=== PATIENT | female | born 1965 | race Caucasian/White ===

== ENCOUNTER 2017-02-06 06:52 | Day surgery (SDC) | payer OTHER ==
[~2017-02-06 06:52] MED LIST: Lidocaine 1%/Sod Bicarbonate in NS 8.4% 1 ML Syringe IV PRN; Sodium Chloride 0.9% 10 ML Syringe FLUSH PRN
[2017-02-06] MEDS: Lactated Ringers 1,000 ML IV SCH ×2 (07:30→14:18)
[2017-02-06] MEDS ORDERED: Lidocaine 1% 4 ML ONE (07:44)
[2017-02-06] MEDS ORDERED: Dexamethasone 4 MG/ML 5 ML MDV ONE (07:44)
[2017-02-06] MEDS ORDERED: Propofol 200 MG/20 ML SDV ONE ×2 (07:44→09:38)
[2017-02-06] MEDS ORDERED: Ondansetron 4 MG/2 ML SDV ONE (07:44)
[2017-02-06] MEDS ORDERED: Rocuronium 50 MG/5 ML Vial ONE (07:44)
[2017-02-06] MEDS ORDERED: Midazolam 1 MG/ML 2 ML SDV ONE (07:44)
[2017-02-06] MEDS ORDERED: ceFAZolin 1 GM Vial ONE (07:44)
[2017-02-06] MEDS ORDERED: Lactated Ringers 1,000 ML ONE ×2 (07:44→10:55)
[2017-02-06] MEDS ORDERED: Ketorolac 30 MG/ML SDV ONE (07:44)
[2017-02-06] MEDS ORDERED: fentaNYL 250 MCG/5 ML SDV ONE (07:45)
[2017-02-06] MEDS ORDERED: HYDROmorphone 1 MG/ML Syringe ONE (07:46)
--- NOTE | 2017-02-06 07:59 | PCM.PREANE ---
Preanesthetic Assessment - Anesthesia/Transfusion/Family Hx Anesthesia History: Prior Anesthesia Without Reaction Family History of Anesthesia Reaction: No Transfusion History: No Prior Transfusion(s) Intubation History: Unknown - Review of Systems General: No Symptoms, Fatigue (anemia with current hgb=10.2) Pulmonary: No Symptoms (History of HEMAL/ does not use CPAP.) Cardiovascular: No Symptoms (History of HTN), Chest Pain (some chest tightness noted per patient since being diagnosed with anemia./ Patient also states the chest discomfor comes more when feeling stressed and anxious.), Dyspnea on Exertion, Lightheadedness (prior hemoglobin ofj 7.4) Gastrointestinal: No Symptoms, Nausea (currently due to nerves and pt c/o being hungry) Neurological: No Symptoms (history of vertigo after d/c) Other: Reports: Thyroid Problems (hypothyroid), Depression, Anxiety - Physical Assessment NPO Status Date: 02/05/17 NPO Status Time: 22:00 Pulse: 58 O2 Sat by Pulse Oximetry: 98 Respiratory Rate: 16 Blood Pressure: 165/75 Temperature: 36.7 C Height: 1.7 m Weight: 91 kg ASA Class: 2 Mental Status: Alert & Oriented x3 Airway Class: Mallampati = 3 Dentition: Reports: Normal Dentition, Caries Thyro-Mental Finger Breadths: 3 Mouth Opening Finger Breadths: 3 ROM/Head Extension: Full Lungs: Clear to Auscultation, Normal Respiratory Effort Cardiovascular: Regular Rate, Regular Rhythm, No Murmurs - Lab Values: Laboratory Last Values WBC 6.48 K/mm3 (3.98-10.04) 02/06/17 07:25 RBC 4.22 M/mm3 (3.98-5.22) 02/06/17 07:25 Hgb 10.2 gm/L (11.2-15.7) L 02/06/17 07:25 Hct 33.2 % (34.1-44.9) L 02/06/17 07:25 MCV 78.7 fl (79.4-94.8) L 02/06/17 07:25 MCH 24.2 pg (25.6-32.2) L 02/06/17 07:25 MCHC 30.7 g/dl (32.2-35.5) L 02/06/17 07:25 Plt Count 244 K/mm3 (182-369) 02/06/17 07:25 MPV 10.2 fl (9.4-12.3) 02/06/17 07:25 Neut % (Auto) 62.4 % (34.0-71.1) 02/06/17 07:25 Lymph % (Auto) 26.5 % (19.3-51.7) 02/06/17 07:25 Cass % (Auto) 8.5 % (4.7-12.5) 02/06/17 07:25 Eos % (Auto) 2.3 (0.7-5.8) 02/06/17 07:25 Baso % (Auto) 0.3 % (0.1-1.2) 02/06/17 07:25 Neut # (Auto) 4.04 K/mm3 (1.56-6.13) 02/06/17 07:25 Lymph # (Auto) 1.72 K/mm3 (1.18-3.74) 02/06/17 07:25 Cass # (Auto) 0.55 K/mm3 (0.24-0.36) H 02/06/17 07:25 Eos # (Auto) 0.15 K/mm3 (0.04-0.36) 02/06/17 07:25 Baso # (Auto) 0.02 K/mm3 (0.01-0.08) 02/06/17 07:25 Urine HCG, Qual Negative (NEGATIVE) 02/06/17 07:10 - Imaging/EKG Impressions: EKG: SR rate= 57, Mild ST depression II, III, non specific findings, QT/QTc moderately prolonged for rate. - Allergies Allergies/Adverse Reactions: Allergies Allergy/AdvReac Type Severity Reaction Status Date / Time Sulfa (Sulfonamide Allergy Itching Verified 02/05/17 15:20 Antibiotics) - Anesthesia Plan Pre-Op Medication Ordered: Beta Maria Victoria Beta Maria Victoria: Metoprolol Med Last Dose Date: 02/06/17 Med Last Dose Time: 06:15 - Acknowledgements Anesthesia Type Planned: General Anesthesia Pt an Appropriate Candidate for the Planned Anesthesia: Yes Alternatives and Risks of Anesthesia Discussed w Pt/Guardian: Yes Pt/Guardian Understands and Agrees with Anesthesia Plan: Yes PreAnesthesia Questionnaire HEENT History: Reports: Impaired Vision, Other (See Below) Other HEENT History: wears glasses Cardiovascular History: Reports: High Cholesterol, Hypertension Respiratory History: Reports: Sleep Apnea Gastrointestinal History: Reports: None Genitourinary History: Reports: None COUNSELING CENTER DIRECTOR History: Reports: Fibroids, Other (See Below) Other OB/BYN History: Fibroid uterus, heavy menstruation, dysmenorrhea, thickened endometrium, abnormal perimenopausal bleeding, vaginal repair Musculoskeletal History: Reports: None Neurological History: Reports: None Psychiatric History: Reports: Anxiety, Depression Endocrine/Metabolic History: Reports: Hypothyroidism Hematologic History: Reports: None Immunologic History: Reports: None Oncologic (Cancer) History: Reports: None Dermatologic History: Reports: None - Infectious Disease History Infectious Disease History: Reports: None - Past Surgical History Head Surgeries/Procedures: Reports: None HEENT Surgical History: Reports: None Cardiovascular Surgical History: Reports: None Respiratory Surgical History: Reports: None GI Surgical History: Reports: Colonoscopy Female Surgical History: Reports: None, D&C Male Surgical History: Reports: None Endocrine Surgical History: Reports: None Neurological Surgical History: Reports: None Musculoskeletal Surgical History: Reports: None Oncologic Surgical History: Reports: None Dermatological Surgical History: Reports: None - SUBSTANCE USE Smoking Status *Q: Never Smoker Recreational Drug Use History: No - HOME MEDS Home Medications: Home Meds FLUoxetine HCl [Fluoxetine HCl] 40 mg PO DAILY 03/31/16 [History] Levothyroxine [Synthroid] 88 mcg PO DAILY 03/31/16 [History] Lisinopril/Hydrochlorothiazide [Lisinopril-Hctz 10-12.5 mg Tab] 1 tab PO DAILY 03/31/16 [History] Metoprolol Succinate [Toprol XL] 50 mg PO DAILY 03/31/16 [History] Simvastatin [Zocor] 80 mg PO DAILY 03/31/16 [History] Ferrous Sulfate [Iron] 325 mg PO BID 02/05/17 [History] - CURRENT (IN HOUSE) MEDS Current Meds: Current Medications Lactated Ringer's (Ringers, Lactated) 1,000 mls @ 125 mls/hr IV ASDIRECTED VASQUEZ Stop: 02/06/17 23:00 Lidocaine/Sodium Bicarbonate (Buffered Lidocaine 1% In Ns 8.4%) 0.25 ml IV ONETIME PRN PRN Reason: Prior to IV Start Stop: 02/06/17 18:00 Sodium Chloride (Saline Flush) 10 ml FLUSH ASDIRECTED PRN PRN Reason: Keep Vein Open Stop: 02/06/17 18:00 Discontinued Medications Cefazolin Sodium (Ancef) Confirm Administered Dose 2 gm .ROUTE .STK-MED ONE Stop: 02/06/17 07:45 Dexamethasone (Dexamethasone) Confirm Administered Dose 20 mg .ROUTE .STK-MED ONE Stop: 02/06/17 07:45 Fentanyl (Sublimaze) Confirm Administered Dose 250 mcg .ROUTE .STK-MED ONE Stop: 02/06/17 07:46 Hydromorphone HCl (Dilaudid) Confirm Administered Dose 1 mg .ROUTE .STK-MED ONE Stop: 02/06/17 07:47 Lidocaine HCl (Xylocaine-Mpf 1%) Confirm Administered Dose 4 mls @ as directed .ROUTE .STK-MED ONE Stop: 02/06/17 07:45 Lactated Ringer's (Ringers, Lactated) Confirm Administered Dose 1,000 mls @ as directed .ROUTE .STK-MED ONE Stop: 02/06/17 07:45 Ketorolac Tromethamine (Toradol) Confirm Administered Dose 30 mg .ROUTE .STK- MED ONE Stop: 02/06/17 07:45 Midazolam HCl (Versed 1 Mg/Ml) Confirm Administered Dose 2 mg .ROUTE .STK-MED ONE Stop: 02/06/17 07:45 Ondansetron HCl (Zofran) Confirm Administered Dose 4 mg .ROUTE .STK-MED ONE Stop: 02/06/17 07:45 Propofol (Diprivan 20 Ml) Confirm Administered Dose 200 mg .ROUTE .STK-MED ONE Stop: 02/06/17 07:45 Rocuronium [place] (Zemuron) Confirm Administered Dose 50 mg .ROUTE .STK-MED ONE Stop: 02/06/17 07:45
[2017-02-06] MEDS ORDERED: Scopolamine 1.5 MG Transdermal Patch TRDERM ONE (08:04)
[2017-02-06] MEDS ORDERED: ePHEDrine 50 MG/ML SDV IVPUSH PRN (09:53)
[2017-02-06] MEDS ORDERED: fentaNYL 100 MCG/2 ML SDV IVPUSH PRN (09:53)
[2017-02-06] MEDS ORDERED: Midazolam 1 MG/ML 2 ML SDV IVPUSH PRN (09:53)
[2017-02-06] MEDS ORDERED: diphenhydrAMINE 50 MG/ML SDV IVPUSH PRN (09:53)
[2017-02-06] MEDS ORDERED: Ondansetron 4 MG/2 ML SDV IVPUSH PRN (09:53)
[2017-02-06] MEDS ORDERED: HYDROmorphone 0.5 MG/0.5 ML Syringe IVPUSH PRN (09:53)
[2017-02-06] MEDS ORDERED: Phenylephrine 1 MG in Sodium Chloride 0.9% 10 ML IV SCH (10:00)
[2017-02-06] MEDS: Bupivacaine 0.5% 30 ML SDV ONE ×2 (10:00→10:21)
[2017-02-06] MEDS ORDERED: ePHEDrine/Normal Saline 25 MG/5 ML Syringe ONE (10:11)
[2017-02-06] MEDS: Lidocaine 1% with EPINEPHrine 1:100,000 20 ML MDV ONE ×2 (10:21→10:40)
[2017-02-06] MEDS: Sodium Chloride 0.9% 50 ML SDV ONE ×2 (10:22→10:40)
[2017-02-06] MEDS ORDERED: Neostigmine Methylsulfate 10 MG/10 ML MDV ONE (10:30)
[2017-02-06] MEDS ORDERED: Albuterol 0.083% 2.5 MG/3 ML Neb Soln NEB PRN (11:48)
--- NOTE | 2017-02-06 11:50 | PCM.POSTAN ---
POST ANESTHESIA ASSESSMENT - MENTAL STATUS Mental Status: Alert - VITAL SIGNS Pulse Rate: 69 SaO2: 94 Resp Rate: 7 Blood Pressure: 143/78 Temperature: 36.4 C - RESPIRATORY Respiratory Status: Respiratory Rate WNL, Airway Patent, O2 Saturation Stable, Supplemental Oxygen - CARDIOVASCULAR CV Status: Blood Pressure Stable, Slow Pulse Rate - GASTROINTESTINAL GI Status: No Symptoms - POST OP HYDRATION Hydration Status: Adequate & Stable
--- NOTE | 2017-02-06 11:54 | PCM.OPNOTE ---
- General Post-Op/Procedure Note Date of Surgery/Procedure: 02/06/17 Operative Procedure(s): Laparoscope assisted vaginal hysterectomy with bilateral salpingectomy and right oophorectomy (left ovary not removed) Pre Op Diagnosis: Abnormal uterine bleeding, abnormal ultrasound, fibroid uterus , heavy menses (menorrhagia) Post-Op Diagnosis: Same Anesthesia Technique: General ET Tube Primary Surgeon: Ziggy Espinoza Secondary Surgeon: Barron Ceja Anesthesia Provider: Chelsy Rodas Perforator Operator Oil Well: Rubens Hewitt (Vag hyst 2nd asst) Perforator Operator Oil Well: Maia Tafoya (PAS) Reason Perforator Operator Oil Well Was Necessary: Assist in surgery, retraction, decrease comorbidity and co-mortality Role of Perforator Operator Oil Well: Assist in surgery, retraction, decrease comorbidity and co-mortality Fluid Replacement, Intraop: 1,500 Output, Urine Amount: 150 EBL in mLs: 200 Drain/Tube Comments:: None Complications: None Condition: Good Free Text/Narrative:: Patient was transported to operating room and medical office building. She was placed under general anesthesia with endotracheal intubation in the low dorsal lithotomy position. SCDs in place and functioning prior surgery. Ancef 2 g given intravenously prior surgery. Timeout was performed confirming name, date of , procedure as flap scope cystovaginal hysterectomy bilateral salpingectomy probable removal of one ovary possible removal of both ovaries in (only the right ovary was removed in addition to the uterus and tubes) the uterine manipulator was placed after examination under anesthesia revealed anterior uterus no specific adnexal masses were palpated the uterus was irregular and history of fibroid uterus. Flores catheter was placed gravity drainage and uterine manipulator was placed as well. The patient having been prepared and draped and the uterine manipulator placed the 5 mm incision made at the umbilicus after injecting 2 mL of 0.5% Marcaine without epinephrine at the umbilicus at the midline suprapubic area were second incision was made and additional 5 mm trocar inserted after initial pneumoperitoneum revealed good visualization of the pelvic organs. The initial pneumoperitoneum was obtained with varies needle which was then removed and the 5 mm port placed at the umbilicus. After inspection of the pelvic organs 5 mm trocar inserted suprapubic area. The uterus was irregular with consistent with fibroids there appeared to be a hematosalpinx on the patient's left side the left ovary. Normal right ovary appeared normal right tube was normal. Additional trochars were inserted at the right and left flanks after transillumination revealed no vessels near the site of insertion. Grasping the right tube and ovary the infundibulopelvic ligament was crossclamped using the Enseal activated and incised and proceeding towards the uterus crossclamping activating and incising utilizing the Enseal until the triple pedicle was approximated the round ligament was crossclamped with the Enseal which was activated and incised. Proceeding caudad crossclamping activating and incising until the uterine vasculature on the right side was transected. The bladder flap was created anteriorly utilizing the Enseal crossclamping activating and incising attention was then turned to the patient's left side the left ovary was not removed. The left tube appeared to be a hematosalpinx was crossclamped and utilizing the Enseal grasping in the mesosalpinx activating incising and proceeding towards the uterus and the tube was peeled away and crossclamping the round ligament on the left side activating and incising and proceeding cephalad crossclamping and incising until at the same level as the bladder flap from the right side. The bladder flap was completed undermining the peritoneum on the left side and meeting at midline. The procedure was then carried vaginally placing the patient in the dorsal lithotomy position removing the uterine manipulator. Injecting 15 mL of 0.25% lidocaine with epinephrine and multiple confluent areas around the cervix. The cervix was circumscribed. Posterior colpotomy was performed without difficulty. Utilizing the LigaSure crossclamping the uterosacral cardinal ligament bundles on the left side activating incising and proceeding to the right side same procedure was performed. Proceeding cephalad left side then right side crossclamping activating and incising until the uterus was able to be removed without difficulty the anterior colpotomy had RA been performed anteriorly with the bladder flap creation no additional surgery was needed in that area. There was bleeding from the left uterine artery which was crossclamped activated twice with the Essure, bleeding was contained. The sponge needle pack asthma sharp count correct 2 pursestring suture was placed of 0 Monocryl followed by running locking suture of 0 Monocryl to approximate the anterior and posterior vaginal cuff. Attention was then returned to the laparoscopic area changing gloves which had been contaminated with the vaginal surgery. Pneumoperitoneum was reobtained inspection of the operative site showed no bleeding the midline and left and right flank 5 mm trochars were removed and no bleeding 4-0 Monocryl interrupted and Dermabond applied. No blood transfusions were required patient was transported postanesthesia care unit in satisfactory condition. Talked with her and procedure was explained all questions answered to his voiced satisfaction.
[2017-02-06] MEDS ORDERED: Acetaminophen/oxyCODONE 325-5 MG Tab PO ONE (12:16)
--- NOTE | 2017-02-06 12:24 | PCM48HPAN ---
Post Anesthesia Note - EVALUATION WITHIN 48HRS OF ANESTHETIC Vital Signs in Normal Range: Yes Patient Participated in Evaluation: Yes Respiratory Function Stable: Yes Airway Patent: Yes Cardiovascular Function Stable: Yes Hydration Status Stable: Yes Pain Control Satisfactory: Yes Nausea and Vomiting Control Satisfactory: Yes Mental Status Recovered: Yes
[2017-02-06] MEDS: Potassium Chloride 10 MEQ Tab.ER PO SCH ×2 (13:04→14:00)
[2017-02-06 16:00] VITALS: BP 121/55
== END 2017-02-06 16:25 | disposition home or self-care (01) ==
LOC: JD.SDS 06:52
PROVIDERS: ATTEND Obstetrics & Gynecology
DX: N80.0 Endometriosis of uterus (principal); D25.9 Leiomyoma of uterus, unspecified; N84.0 Polyp of corpus uteri; N87.9 Dysplasia of cervix uteri, unspecified; N72 Inflammatory disease of cervix uteri; N83.291 Other ovarian cyst, right side; N83.8 Other noninflammatory disorders of ovary, fallopian tube and broad ligament; N92.0 Excessive and frequent menstruation with regular cycle; N93.9 Abnormal uterine and vaginal bleeding, unspecified; I10 Essential (primary) hypertension; E03.9 Hypothyroidism, unspecified; F32.9 Major depressive disorder, single episode, unspecified; F41.9 Anxiety disorder, unspecified; E78.00 Pure hypercholesterolemia, unspecified; G47.33 Obstructive sleep apnea (adult) (pediatric); D50.9 Iron deficiency anemia, unspecified; Z88.2 Allergy status to sulfonamides; Z98.890 Other specified postprocedural states; Z79.899 Other long term (current) drug therapy; Z83.3 Family history of diabetes mellitus
CPT/HCPCS: 36415; 51798; 58554; 80051; 81025; 85025; 86850; 86900; 86901; 93005; 94640; A9270; J0690; J1100; J1170; J1885; J2250; J2405; J2710; J3010; J7050; J7120; 00840; J2704